=== PATIENT | female | born 1940 | race Caucasian/White ===

== ENCOUNTER 2016-07-23 05:10 | Inpatient (IN) ==
[2016-07-17 11:51] LABS: Appearance,Urine CLEAR; Bilirubin,Urine NEG (NEG); Color,Urine STRAW; Glucose,Urine (UA) NEGATIVE (NEG); Leukocyte Esterase,Urine NEG /uL (NEG); Nitrate,Urine NEG (NEG); Protein,Urine NEG (NEG); Specific Gravity,Urine 1.004 (1.000-1.035); Urine Blood NEG mg/dL (<0.03); Urobilinogen,Urine NEG (NEG)
[2016-07-17 13:26] LABS: Blood Urea Nitrogen 17 mg/dl (8-23)
[2016-07-17 13:31] LABS: Basophils # (Auto) 0.1 K/mcL (0.0-0.3); Basophils % (Auto) 2.2 % (0.0-2.0); Eosinophils # (Auto) 0.1 K/mcL (0.0-0.7); Eosinophils % (Auto) 1.6 % (0.0-7.0); Granulocytes % (Auto) 49.3 % (38.0-78.0); Lymphocytes # (Auto) 1.9 K/mcL (1.5-4.8); Lymphocytes % (Auto) 38.1 % (15.5-49.0); Mean Cell Volume 97.1 fL (80.0-100.0); Mean Corpuscular HGB Conc 33.1 g/dL (31.0-36.0); Mean Corpuscular Hemoglobin 32.2 pg (26.0-34.0); Monocytes # (Auto) 0.5 K/mcL (0.1-0.9); Monocytes % (Auto) 8.8 % (1.0-9.0); Platelet Count 270 K/mcL (140-440); RBC 4.34 M/mcL (4.00-5.20); Red Cell Distribution Width 12.8 % (11.5-14.5)
[2016-07-23] MEDS ORDERED: CELECOXIB 200 MG CAPSULE PO SCH (06:00)
[2016-07-23] MEDS ORDERED: PREGABALIN 150 MG CAPSULE PO SCH (06:00)
[2016-07-23] MEDS ORDERED: oxyCODONE 10 MG TAB.ER.12H PO SCH (06:00)
[2016-07-23] MEDS: ceFAZolin 1 GM VIAL IV SCH ×3 (06:40→15:30)
[2016-07-23] MEDS: KETOROLAC 30 MG, ROPIVACAINE HCL/PF 49.5 ML, EPINEPHrine 0.5 MG, 0.9 % SODIUM CHLORIDE ... IJ ONE ×2 (06:41→09:10)
[2016-07-23] MEDS ORDERED: SCOPOLAMINE 1 PATCH PATCH TOPICAL ONE (07:03)
[2016-07-23] MEDS ORDERED: LIDOCAINE HCL/PF 100 MG/5 ML SYRINGE IV ONE (07:35)
[2016-07-23] MEDS ORDERED: MIDAZOLAM 5 MG/5 ML VIAL IV ONE (07:35)
[2016-07-23] MEDS ORDERED: DEXAMETHASONE 10 MG/ML VIAL IV ONE (07:35)
[2016-07-23] MEDS ORDERED: GLYCOPYRROLATE 0.2 MG/ML VIAL IV ONE (07:35)
[2016-07-23] MEDS ORDERED: PROPOFOL 200 MG/20 ML VIAL IV ONE (07:35)
[2016-07-23] MEDS ORDERED: ROPIVACAINE HCL/PF 30 ML VIAL IJ ONE (07:35)
[2016-07-23] MEDS ORDERED: ONDANSETRON 4 MG/2 ML VIAL IV ONE (07:35)
[2016-07-23] MEDS ORDERED: TRANEXAMIC ACID 1,000 MG/10 ML VIAL IV ONE ×2 (07:35→09:26)
[2016-07-23] MEDS ORDERED: GENTAMICIN SULFATE 800 MG/20 ML VIAL IR ONE (08:20)
[2016-07-23] MEDS ORDERED: diphenhydrAMINE 50 MG/ML VIAL IV PRN (08:42)
[2016-07-23] MEDS ORDERED: NALOXONE HCL 0.4 MG/ML VIAL IV PRN (08:42)
[2016-07-23] MEDS ORDERED: BENZOCAINE/MENTHOL 1 LOZENGE PO PRN ×2 (08:42→09:26)
[2016-07-23] MEDS ORDERED: MEPERIDINE 25 MG/ML SYRINGE IV PRN (08:42)
[2016-07-23] MEDS ORDERED: FLUMAZENIL 0.1 MG/ML ML IV PRN (08:42)
[2016-07-23] MEDS ORDERED: LACTATED RINGERS 250 ML IV PRN (08:42)
[2016-07-23] MEDS ORDERED: ePHEDrine 50 MG/ML AMPUL IV PRN (08:42)
[2016-07-23] MEDS ORDERED: PROMETHAZINE 25 MG/ML VIAL IM ONE (08:42)
[2016-07-23] MEDS ORDERED: HYDROmorphone 2 MG/ML SYRINGE IV PRN ×2 (08:42→09:26)
[2016-07-23] MEDS ORDERED: METHOCARBAMOL 1,000 MG/10 ML VIAL IV PRN (08:42)
[2016-07-23] MEDS ORDERED: METOCLOPRAMIDE 10 MG/2 ML VIAL IV PRN (08:42)
[2016-07-23] MEDS ORDERED: ONDANSETRON 4 MG/2 ML VIAL IV PRN (08:42)
[2016-07-23] MEDS ORDERED: IPRATROPIUM/ALBUTEROL 3 ML AMPUL.NEB NEB PRN (08:42)
[2016-07-23] MEDS ORDERED: fentaNYL 100 MCG/2 ML VIAL IV PRN (08:42)
[2016-07-23] MEDS ORDERED: MEPERIDINE 50 MG/ML SYRINGE IM ONE (08:42)
[2016-07-23] MEDS ORDERED: PROMETHAZINE 25 MG/ML VIAL IV PRN (08:42)
[2016-07-23] MEDS ORDERED: LACTATED RINGERS 1,000 ML IV SCH (08:45)
--- NOTE | 2016-07-23 09:25 | Brief Operative Note ---
Date of procedure: 07/23/16 Pre-op diagnosis: right knee oa Post-op diagnosis: same Procedure: right total knee arthroplasty Grafts/Implants: Yes Anesthesia: GETA, spinal Complications: none Surgeon: Meet Del Angel Infusion Therapy Nurse: Tristan Holliday Estimated blood loss (cc): 150 Tourniquet Time (Minutes): 62 Specimens Removed/Pathology: none sent Condition: stable Disposition: PACU
[2016-07-23] MEDS ORDERED: METHOCARBAMOL 750 MG TABLET PO PRN (09:26)
[2016-07-23] MEDS ORDERED: FLEETS ADULT ENEMA PR PRN (09:26)
[2016-07-23] MEDS ORDERED: BISACODYL 10 MG SUPP.RECT PR PRN (09:26)
[2016-07-23] MEDS ORDERED: MAGNESIUM HYDROXIDE 30 ML ORAL.SUSP PO PRN (09:26)
[2016-07-23] MEDS ORDERED: POLYETHYLENE GLYCOL 3350 17 GM PACKET PO PRN (09:26)
--- NOTE | 2016-07-23 09:57 | Operative Note ---
DATE OF OPERATION: 07/23/2016 PREOPERATIVE DIAGNOSIS: Degenerative joint disease, right knee. POSTOPERATIVE DIAGNOSIS: Degenerative joint disease, right knee. PROCEDURE: Right total knee arthroplasty. SURGEON: Bernardo Del Angel M.D. HOUSEKEEPING LEAD SURGEON: Tristan Holliday PA-C. ANESTHESIA: Spinal with LMA assist. ESTIMATED BLOOD LOSS: 150 mL. COMPLICATIONS: None noted. SPECIMENS REMOVED: None. DRAINS: None. TOURNIQUET TIME: 62 minutes at 300 mmHg. IMPLANTS: DePuy CMW2 bone cement 20 grams x4; DePuy Attune posterior stabilized size 6, right narrow; DePuy Attune tibial insert fixed bearing posterior stabilized size 6, 5 mm AOX; DePuy Attune tibial base fixed bearing size 5 cemented; DePuy Attune patella medialized dome 36 mm cemented AOX. INDICATIONS: The patient has had a long-standing history of worsening pain in the knee that has failed conservative treatment. Radiographs have confirmed advanced degenerative joint disease. After a long discussion about treatment options, the patient elected to proceed with a knee arthroplasty. The risks and benefits were discussed with the patient in detail including, but not limited to, the risks of anesthesia, problems with the heart or lungs related to anesthesia, infection, compromise or injury to the nerves and blood vessels, deep venous thrombosis, pulmonary embolism, pneumonia, continued pain after surgery, worsening pain or symptoms after surgery, swelling, loss of motion, instability, leg length discrepancy, and need for repeat surgery. DESCRIPTION OF PROCEDURE: The patient was seen in the pre-anesthesia waiting room where all questions were answered and the correct side and site were identified and marked. The patient was transferred to the operating room and administered the anesthetic and given pre-operative antibiotics. A time-out was then called. The extremity was prepped and draped, exsanguinated, and the tourniquet was inflated to 300 mmHg. A midline skin incision was then made with a standard medial parapatellar arthrotomy. Debridement of the menisci, ACL, and PCL was performed followed by balancing releases in the medial lateral plane. We then established intramedullary access to both the femur and tibia in a standard fashion. The femoral guide ishaan was initially placed with the distal femoral guide, pinned into place, and the distal femoral cut was performed and checked with a flat plate. We then turned our attention to the tibia. The intramedullary guide was placed with the proximal tibial cutting block. The block was appropriately positioned off the affected side, varus and valgus was checked with the extra-medullary guide, and the block was pinned into place. The proximal tibial cut was performed and the tibia was prepared for the tibial implant with appropriate rotation. The tibia, femur, and posterior compartment were debrided of osteophytes, loose bodies, and meniscal fragments We then used the gap balancing technique to balance extension with the first two cuts and good balancing was obtained with a 10 millimeter gap block. We turned our attention back to the femur and used the referencing block and implant to size appropriately. Using the gap balancing technique for the flexion space we set our rotation of the femur off the tibial cut. Anesthesia gave the patient 1 gram of Tranexamic Acid via an intravenous route. We placed the 4 in 1 cutting block and made anterior, posterior, and chamfer cuts. Box plasty cuts were then made in a standard fashion for the posterior stabilized prosthesis. We then completed osteophyte release and posterior capsule release from the posterior compartment. Trials were placed and we chose the polyethylene insert thickness that provided the best stability in all planes. With the trials in place, we did a measured resection for a resurfacing patella. We sized the patella and placed the patella trial and performed a lateral facetectomy with the saw and rongeur. A lateral release was performed. Good tracking was obtained. We removed all trials, irrigated and dried all cut surfaces. We cemented the components into place including tibia, femur and patella. We placed a trial liner and held the knee in full extension with the patella compressed while the cement cured. We then removed all excess cement and placed the final polyethylene tibiofemoral component. Irrigation with 3 liters of antibiotic saline was then performed using jet-lavage. We let the tourniquet down and coagulated bleeding vessels. We injected a 100 cubic centimeter volume including Ropivacaine 49.25 cubic centimeters at 5 milligrams per cubic centimeter, Ketorolac 30 milligrams, and Epinephrine 0.5 milligrams into 100 cubic centimeters volume of normal saline. We placed a deep drain and closed the retinaculum with looped #0 Maxon. We closed the subcutaneous tissue and skin in layers out to gurvinder in the skin. A sterile pressure dressing was applied. All needle and sponge counts were correct. The patient was transferred to the recovery room in stable condition. NYA:penelope Prince: 07/23/2016 09:37:38 Job ID: [id number] Doc ID: [id number] Bernardo Del Angel MD
[2016-07-23] MEDS: KETOROLAC 15 MG/ML VIAL IV SCH ×2 (10:16→17:44)
--- NOTE | 2016-07-23 10:48 | XRay Report ---
CLINICAL INFORMATION: Postop total knee prostheses COMPARISON: 08/02/2013 FINDINGS: Total knee prostheses is anatomically aligned. No osseous abnormality. Periarticular gas and soft tissue swelling seen-as expected. IMPRESSION: Negative Interpreted and Authenticated by: Meet Russ 07/23/16
[2016-07-23] MEDS: 0.9 % SODIUM CHLORIDE 1,000 ML IV SCH ×3 (10:52→19:33)
[2016-07-23] MEDS: FERROUS SULFATE 325 MG TABLET PO SCH ×2 (12:26→16:56)
[2016-07-23] MEDS: HYDROcodone/APAP 10/325MG TABLET PO PRN ×2 (14:20→19:33)
[2016-07-23] MEDS: 0.9 % SODIUM CHLORIDE 10 ML SYRINGE IV SCH ×2 (14:20→22:40)
[2016-07-23] MEDS: ONDANSETRON 4 MG/2 ML VIAL IV PRN ×2 (14:20→19:33)
[2016-07-23] MEDS: PANTOPRAZOLE 40 MG TABLET PO SCH (16:56)
[2016-07-23] MEDS: ASPIRIN 325 MG ENTERIC COATED TABLET PO SCH (19:32)
[2016-07-23] MEDS: SENNOSIDES 1 TABLET PO SCH (19:32)
[2016-07-23] MEDS: DOCUSATE SODIUM 100 MG CAPSULE PO SCH (19:32)
[2016-07-23] MEDS: valACYclovir 500 MG TABLET PO SCH (19:33)
[2016-07-24] MEDS: ceFAZolin 1 GM VIAL IV SCH
[2016-07-24] MEDS: SULINDAC 200 MG TABLET PO SCH ×3 (00:57→21:14)
[2016-07-24] MEDS: HYDROcodone/APAP 10/325MG TABLET PO PRN ×6 (00:57→21:14)
[2016-07-24] MEDS: ONDANSETRON 4 MG/2 ML VIAL IV PRN ×6 (01:02→21:12)
[2016-07-24] MEDS: KETOROLAC 15 MG/ML VIAL IV SCH ×5 (01:02→23:47)
[2016-07-24] MEDS: 0.9 % SODIUM CHLORIDE 1,000 ML IV SCH ×3 (05:01→18:34)
[2016-07-24] MEDS: 0.9 % SODIUM CHLORIDE 10 ML SYRINGE IV SCH ×3 (05:01→21:14)
[2016-07-24] MEDS: PANTOPRAZOLE 40 MG TABLET PO SCH ×2 (07:09→16:57)
--- NOTE | 2016-07-24 07:49 | Orthopedic Progress Note ---
Subjective Patient information: Note initiated : 07/24/16 at 7:47 am Service Date, if different from initiated Date: [] Patient: Ranch[place] Bey 76 y/o F admitted on 07/23/16 for Right Total Knee Arthroplasty. Chief Complaint: [] Principal diagnosis: Right total knee arthroplasty Interval history: Doing well without complaint. Planning on Rehab center fr[facility] as she does live independently and needs extended help. Objective Vital signs: Vital Signs Temp Pulse Resp BP Pulse Ox 07/24/16 07:37 98.0 F 60 16 93/54 94 07/24/16 04:00 97.8 F 60 16 101/68 92 07/23/16 23:34 97.6 F 66 16 120/70 96 07/23/16 22:28 94 07/23/16 22:27 94 07/23/16 20:00 97.4 F L 70 16 128/73 96 07/23/16 17:57 97.4 F L 87 16 126/78 96 07/23/16 16:23 77 16 120/79 94 07/23/16 12:28 83 16 126/86 95 07/23/16 11:59 77 14 121/86 92 07/23/16 11:28 72 16 128/79 97 07/23/16 11:14 65 16 132/73 93 07/23/16 10:58 97.2 F L 66 16 135/83 100 07/23/16 10:30 97.2 F L 70 13 147/80 96 07/23/16 10:15 80 51 H 142/80 97 07/23/16 10:00 77 14 132/76 97 07/23/16 09:45 97.0 F L 90 12 117/72 96 Intake and Output 07/23/16 07/24/16 07/24/16 21:59 05:59 13:59 Intake Total 2850 / 2850 600 / 600 Output Total 1125 / 1125 450 / 450 Balance 1725 / 1725 150 / 150 Intake: IV 1000 / 1000 Sodium Chloride 0.9% 1, 1000 / 1000 000 ml @ 125 mls/hr IV . Q8H RAFA Rx#:[id number] Oral 1850 / 1850 600 / 600 Output: Void Amount 1125 / 1125 450 / 450 Other: Meal Dinner Percent of Meal Consumed 75% # Voids 1 1 Weight 166 lb 8 oz Intake & Output: Intake & Output 07/23/16 07/24/16 07/24/16 21:59 05:59 13:59 Intake Total 2850 / 2850 600 / 600 Output Total 1125 / 1125 450 / 450 Balance 1725 / 1725 150 / 150 Weight 166 lb 8 oz Intake: IV 1000 / 1000 Sodium Chloride 0.9% 1, 1000 / 1000 000 ml @ 125 mls/hr IV . Q8H RAFA Rx#:[id number] Oral 1850 / 1850 600 / 600 Output: Void Amount 1125 / 1125 450 / 450 Other: Meal Dinner Percent of Meal Consumed 75% # Voids 1 1 Incision: Yes healing, Yes clean and dry Dressing: Yes clean, Yes dry, Yes intact Weight bearing status: as tolerated Neurological exam IM: Yes alert, Yes oriented X3, Yes neurovascular intact Extremities exam IM: No calf tenderness, No Hernando's sign - Periperhal Pulses Peripheral pulses: 2+: dorsalis pedis (L), dorsalis pedis (R), posterior tibialis (L), posterior tibialis (R) - Labs CBC & BMP: 07/24/16 04:35 07/17/16 10:37 Labs: Orthopedic Labs 07/17/16 10:37 PT 12.7 INR 0.9 07/24/16 07/17/16 04:35 10:37 Hgb 10.4 L 14.0 Hct 31.7 L 42.1 Assessment and Plan (1) S/P total knee arthroplasty PO day 1 s/p right total knee arthroplasty WBAT Pain control DVT prophylaxis with 325 mg ASA PT DC to rehab Friday Status: Acute Qualifiers: Laterality: right Qualified Code(s): Z96.651 - Presence of right artificial knee joint
[2016-07-24] MEDS: UBIDECARENONE 300 MG PO SCH (08:40)
[2016-07-24] MEDS: FERROUS SULFATE 325 MG TABLET PO SCH ×3 (08:44→16:56)
[2016-07-24] MEDS: DOCUSATE SODIUM 100 MG CAPSULE PO SCH ×2 (08:44→21:14)
[2016-07-24] MEDS: ASPIRIN 325 MG ENTERIC COATED TABLET PO SCH ×2 (08:44→21:14)
[2016-07-24] MEDS: CALCIUM (OYSTER SHELL) 500 MG TABLET PO SCH (08:44)
[2016-07-24] MEDS: OXYBUTYNIN CHLORIDE 5 MG TABLET PO SCH (08:44)
[2016-07-24] MEDS: valACYclovir 500 MG TABLET PO SCH (21:13)
[2016-07-24] MEDS: SENNOSIDES 1 TABLET PO SCH (21:14)
[2016-07-25] MEDS: 0.9 % SODIUM CHLORIDE 1,000 ML IV SCH ×3 (00:56→17:21)
[2016-07-25] MEDS: HYDROcodone/APAP 10/325MG TABLET PO PRN ×6 (01:03→20:51)
[2016-07-25] MEDS: KETOROLAC 15 MG/ML VIAL IV SCH (05:53)
[2016-07-25] MEDS: 0.9 % SODIUM CHLORIDE 10 ML SYRINGE IV SCH ×3 (05:56→22:30)
[2016-07-25] MEDS: ONDANSETRON 4 MG/2 ML VIAL IV PRN (05:56)
--- NOTE | 2016-07-25 06:23 | Orthopedic Progress Note ---
Subjective Patient information: Note initiated : 07/25/16 at 6:21 am Service Date, if different from initiated Date: [] Patient: [place] Bey 76 y/o F admitted on 07/23/16 for Right Total Knee Arthroplasty. Chief Complaint: [] Principal diagnosis: Right total knee arthroplasty Interval history: doing well. pain under control. having some trouble ambulating Objective Vital signs: Vital Signs Temp Pulse Resp BP Pulse Ox 07/25/16 04:00 97.9 F 54 L 16 121/67 96 07/25/16 00:00 98.0 F 64 16 117/73 94 07/24/16 20:00 98.4 F 68 16 110/67 94 07/24/16 16:00 98.8 F 62 16 146/78 92 07/24/16 12:00 98.8 F 62 16 110/70 92 07/24/16 07:52 92 07/24/16 07:37 98.0 F 60 16 93/54 94 Intake and Output 07/24/16 07/25/16 07/25/16 21:59 05:59 13:59 Intake Total 800 / 800 750 / 750 Balance 800 / 800 750 / 750 Intake: Oral 800 / 800 750 / 750 Other: # Voids 1 Weight 167 lb Intake & Output: Intake & Output 07/24/16 07/25/16 07/25/16 21:59 05:59 13:59 Intake Total 800 / 800 750 / 750 Balance 800 / 800 750 / 750 Weight 167 lb Intake: Oral 800 / 800 750 / 750 Other: # Voids 1 Incision: Yes inflamed, Yes clean and dry Incision clean and dry: Yes Dressing: Yes clean, Yes dry, Yes intact Weight bearing status: full Neurological exam IM: Yes normal gait, Yes oriented X3, Yes motor sensory intact , Yes neurovascular intact Extremities exam IM: No calf tenderness, Yes Foot pink and warm, Yes neurovascular intact - Labs CBC & BMP: 07/25/16 04:18 07/17/16 10:37 Labs: Orthopedic Labs 07/17/16 10:37 PT 12.7 INR 0.9 07/25/16 07/24/16 07/17/16 04:18 04:35 10:37 Hgb 10.0 L 10.4 L 14.0 Hct 29.9 L 31.7 L 42.1 Assessment and Plan (1) S/P total knee arthroplasty pod 2 s/p tka pain control dvt prophylaxis d/c planning rehab tomorrow Status: Acute Qualifiers: Laterality: right Qualified Code(s): Z96.651 - Presence of right artificial knee joint
--- NOTE | 2016-07-25 06:24 | Discharge Summary ---
Ortho Discharge - TKA - Patient Instructions Diet: Regular Diet Activity: activity as tolerated, ambulate with assistive device, weight bearing as tolerated Total Knee Protocol: For Total Knee: Start ROM NATASHA with stationary bike or rocking chair. Work on gaining full extension of knee. Posterior dislocation precautions provided. Hip abductor strengthening and gait training instructions provided. Apply Cryocuff as instructed. Dressing Care: May shower in 2 days - Problem Maintenance (1) S/P total knee arthroplasty Status: Acute Qualifiers: Laterality: right Qualified Code(s): Z96.651 - Presence of right artificial knee joint - Follow Up Plan Disposition: Xfer SNF Prognosis: Good Rehab Potential: Good I certify that the patient requires SNF services: Yes Overall status at discharge: patient is progressing back to baseline
[2016-07-25] MEDS: PANTOPRAZOLE 40 MG TABLET PO SCH ×2 (08:08→17:21)
[2016-07-25] MEDS: CALCIUM (OYSTER SHELL) 500 MG TABLET PO SCH (08:18)
[2016-07-25] MEDS: OXYBUTYNIN CHLORIDE 5 MG TABLET PO SCH (08:19)
[2016-07-25] MEDS: SULINDAC 200 MG TABLET PO SCH ×2 (08:19→20:54)
[2016-07-25] MEDS: ASPIRIN 325 MG ENTERIC COATED TABLET PO SCH ×2 (08:19→20:51)
[2016-07-25] MEDS: UBIDECARENONE 300 MG PO SCH (08:19)
[2016-07-25] MEDS: FERROUS SULFATE 325 MG TABLET PO SCH ×3 (08:19→17:21)
[2016-07-25] MEDS: DOCUSATE SODIUM 100 MG CAPSULE PO SCH ×2 (08:19→20:54)
[2016-07-25] MEDS: ONDANSETRON ODT 4 MG TABLET SL PRN ×3 (11:40→19:07)
[2016-07-25] MEDS: valACYclovir 500 MG TABLET PO SCH (20:54)
[2016-07-25] MEDS: SENNOSIDES 1 TABLET PO SCH (20:54)
[2016-07-26] MEDS: ONDANSETRON ODT 4 MG TABLET SL PRN ×2 (01:02→05:30)
[2016-07-26] MEDS: HYDROcodone/APAP 10/325MG TABLET PO PRN ×2 (01:21→06:17)
[2016-07-26] MEDS: 0.9 % SODIUM CHLORIDE 1,000 ML IV SCH (01:22)
[2016-07-26] MEDS: 0.9 % SODIUM CHLORIDE 10 ML SYRINGE IV SCH (05:52)
--- NOTE | 2016-07-26 06:26 | Orthopedic Progress Note ---
Subjective Patient information: Note initiated : 07/26/16 at 6:25 am Service Date, if different from initiated Date: [] Patient: [place] Bey 76 y/o F admitted on 07/23/16 for Right Total Knee Arthroplasty. Chief Complaint: [] Principal diagnosis: Right total knee arthroplasty Interval history: doing better. sore quad region Objective Vital signs: Vital Signs Temp Pulse Resp BP Pulse Ox 07/26/16 03:23 97.0 F L 71 18 118/66 97 07/25/16 23:34 98.4 F 64 10 L 107/62 96 07/25/16 20:00 98.9 F 63 16 105/65 92 07/25/16 16:00 98.7 F 64 18 134/80 94 07/25/16 12:00 97.8 F 63 16 101/68 94 07/25/16 11:00 97.8 F 63 16 101/68 94 07/25/16 09:39 62 07/25/16 07:12 98.4 F 63 20 104/52 93 Intake and Output 07/25/16 07/26/16 07/26/16 21:59 05:59 13:59 Intake Total 300 / 300 400 / 400 Balance 300 / 300 400 / 400 Intake: Oral 300 / 300 400 / 400 Other: # Voids 1 1 # Bowel Movements 1 Weight 175 lb Intake & Output: Intake & Output 07/25/16 07/26/16 07/26/16 21:59 05:59 13:59 Intake Total 300 / 300 400 / 400 Balance 300 / 300 400 / 400 Weight 175 lb Intake: Oral 300 / 300 400 / 400 Other: # Voids 1 1 # Bowel Movements 1 Incision: Yes healing, Yes clean and dry Incision clean and dry: Yes Dressing: Yes clean, Yes dry, Yes intact Weight bearing status: full Neurological exam IM: Yes abnormal gait, Yes alert, Yes oriented X3, Yes motor sensory intact, Yes neurovascular intact Extremities exam IM: No calf tenderness, Yes Foot pink and warm, Yes neurovascular intact - Labs CBC & BMP: 07/26/16 04:30 07/17/16 10:37 Labs: Orthopedic Labs 07/17/16 10:37 PT 12.7 INR 0.9 07/26/16 07/25/16 07/24/16 04:30 04:18 04:35 Hgb 9.1 L 10.0 L 10.4 L Hct 27.4 L 29.9 L 31.7 L 07/17/16 10:37 Hgb 14.0 Hct 42.1 Assessment and Plan (1) S/P total knee arthroplasty pod 3 s/p tka pain control dvt prophylaxis d/c planning rehab today Status: Acute Qualifiers: Laterality: right Qualified Code(s): Z96.651 - Presence of right artificial knee joint
[2016-07-26] MEDS: FERROUS SULFATE 325 MG TABLET PO SCH (09:51)
[2016-07-26] MEDS: ASPIRIN 325 MG ENTERIC COATED TABLET PO SCH (09:51)
[2016-07-26] MEDS: DOCUSATE SODIUM 100 MG CAPSULE PO SCH (09:52)
[2016-07-26] MEDS: CALCIUM (OYSTER SHELL) 500 MG TABLET PO SCH (09:53)
[2016-07-26] MEDS: OXYBUTYNIN CHLORIDE 5 MG TABLET PO SCH (09:54)
[2016-07-26] MEDS: PANTOPRAZOLE 40 MG TABLET PO SCH (09:56)
[2016-07-26] MEDS: SULINDAC 200 MG TABLET PO SCH (09:56)
[2016-07-26] MEDS: UBIDECARENONE 300 MG PO SCH (10:05)
== END 2016-07-26 10:45 | DRG 470 ==
LOC: MEDSUR 05:10
PROVIDERS: ADMIT Orthopaedic Surgery Sports Medicine; ATTEND Orthopaedic Surgery Sports Medicine